=== PATIENT | female | born 1995 | race Caucasian/White ===

== ENCOUNTER 2017-11-01 08:47 | Emergency (ER) | payer OTHER ==
--- NOTE | 2017-11-01 09:12 | ED Physician Documentation ---
Sore Throat/Dental Pain - HISTORIAN Historian: patient - HPI Stated Complaint: SORE THROAT Chief Complaint: Sore Throat Additional Information: Patient c/o sore throat that started 2 days ago- states that she has been running a fever with chills- has been alternating Ibuprofen and Tylenol with little relief- decreased oral intake d/t discomfort. Patient denies any history of strep. Onset: days ago (symptoms started 2 days ago (Thursday)) Context: Possible Infection, Other (white patches bilaterally). denies: Abscess Associated Symptoms: fever, chills, sore throat, moderate, R ear pain, L ear pain, swollen glands (submandibular swelling). denies: unable to swallow, cough Worsened By: other (trying to swallow- unable to eat d/t pain) Relieved By: Took Ibuprofen at 4 a.m. - ROS CONST: other (c/o watery eyes). denies: recent illness CVS/RESP: denies: chest pain, shortness of breath GI/: nausea, vomiting (1 episode) MS/SKIN/LYMPH: muscle aches. denies: rash NEURO/PSYCH: headache - PAST HX Past History: none Other History: none Immunizations: UTD Allergies/Adverse Reactions: Allergies Allergy/AdvReac Type Severity Reaction Status Date / Time Penicillins Allergy Verified 11/01/17 09:06 Home Medications: Ambulatory Orders Medication Instructions Recorded Cephalexin [Keflex] 500 mg PO BID 10 Days #20 capsule 11/01/17 Phentermine HCl [Adipex-P] 37.5 mg PO DAILY 11/01/17 Spironolactone [Spironolactone] 100 mg PO DAILY 11/01/17 - SOCIAL HX Smoking History: non-smoker Alcohol Use: none Drug Use: none - FAMILY HX Family History: No - VITAL SIGNS Vital Signs: Vital Signs Temp Pulse Resp BP Pulse Ox 98.2 F 100 H 16 112/78 99 11/01/17 09:52 11/01/17 09:52 11/01/17 09:52 11/01/17 09:52 11/01/17 09:52 - REVIEWED ASSESSMENTS Nursing Assessment Reviewed: Yes Vitals Reviewed: Yes ED Results Lab/Radiology - Lab Results Lab Results: STEPT- POSITIVE - Orders Orders: ED Orders Category Date Time Status Strep [GRP A STREP SCREEN] Stat Lab 11/01/17 Ordered Acetaminophen [Tylenol Extra Strength] Med 11/01/17 09:17 Discontinued 1,000 mg PO NOW ONE Cephalexin [Keflex] Med 11/01/17 09:20 Discontinued 500 mg .ROUTE .STK-MED ONE Cephalexin [Keflex] Med 11/01/17 09:17 Discontinued 500 mg PO NOW ONE Ondansetron HCl Rapdis [Zofran Odt] Med 11/01/17 09:19 Discontinued 4 mg .ROUTE .STK-MED ONE Ondansetron HCl Rapdis [Zofran Odt] Med 11/01/17 09:17 Discontinued 4 mg PO NOW ONE traMADol HCL [Ultram] Med 11/01/17 09:40 Discontinued 50 mg PO NOW ONE Sore throat Physical Exam - EXAM General Appearance: alert, mild distress. No: lethargic, hyperventilating Head/Neck: head nml inspection, pain over sinuses (tenderness over maxillary sinus), anterior (submandibular swelling). No: stiff neck Eyes: eyes nml inspection, PERRL Mouth/Throat: gums nml, no drooling, no air way problems, pharyngeal erythema, tonsillar exudate, tonsillar swelling Ear/Nose: nml inspection Respiratory: no resp. distress, breath sounds nml. No: wheezes, rales, rhonchi CVS: heart sounds nml Abdomen: soft, normal bowel sounds, no distension, non-tender Extremities: nml ROM Skin: warm/dry Neuro/Psych: oriented x3, mood/affect nml Discharge Clincal Impression: Strep pharyngitis Prescriptions: Cephalexin [Keflex] 500 mg PO BID 10 Days #20 capsule Referrals: Primary Doctor,No [Primary Care Provider] - 2 Days Comments: Take antibiotic as directed until gone Alternate Tylenol and Ibuprofen as needed for fever and body aches Gargle with warm salt several times a day Take Tramadol as needed for pain (Use only when Ibuprofen and Tylenol not helping) Increase fluid intake to 8-8oz glasses of water a day and use 2/3 Gatorade and 1 /3 Water for extra hydration Follow up with primary care provider in 2-3 days. Condition: Good Disposition: 01 HOME, SELF-CARE Decision to Admit: NO Decision Time: 12:21
[2017-11-01] MEDS ORDERED: CEPHALEXIN 250 MG CAPSULE PO ONE (09:17)
[2017-11-01] MEDS ORDERED: ONDANSETRON HCL 4 MG TAB.RAPDIS PO ONE (09:17)
[2017-11-01] MEDS ORDERED: ACETAMINOPHEN 500 MG TABLET PO ONE (09:17)
[2017-11-01] MEDS ORDERED: ONDANSETRON HCL 4 MG TAB.RAPDIS ONE (09:19)
[2017-11-01] MEDS ORDERED: CEPHALEXIN 250 MG CAPSULE ONE (09:20)
[2017-11-01] MEDS ORDERED: traMADol HCL 50 MG TABLET PO ONE (09:40)
[2017-11-01 09:53] VITALS: BP 112/78
== END 2017-11-01 09:52 | disposition home or self-care (01) ==
LOC: ED 08:47
DX: J02.0 Streptococcal pharyngitis (principal)
CPT/HCPCS: 87880; A9270; 99283